=== PATIENT | female | born 1965 | race Caucasian/White ===

== ENCOUNTER 2021-03-20 11:59 | Outpatient (CLI) | payer BC, SELFPAY ==
--- NOTE | ~2021-03-20 | US_ITS ---
EXAMINATION: US venous doppler [facility] DATE: 03/20/2021 13:35 INDICATION: Left lower limb pain. TECHNIQUE: Grayscale ultrasound images without and with compression and Doppler ultrasound images of the left lower extremity veins were obtained. COMPARISON: None. FINDINGS: The visualized portions of left common femoral vein, profunda (deep) femoral vein, femoral vein, popl iteal vein, peroneal veins, posterior tibial veins, and greater saphenous vein outflow are patent. IMPRESSION: 1. No deep venous thrombosis. Reviewed, dictated and finalized at location A.
== END 2021-03-20 12:00 | disposition home or self-care (01) ==
LOC: ANHIMG 12:10
PROVIDERS: PCP Family Medicine; Visit Provider Family Medicine
DX: M79.605 Pain in left leg (principal)
CPT/HCPCS: 93971

== ENCOUNTER 2022-06-19 07:30 | Outpatient (RCR) | payer BC, SELFPAY | END 2022-09-03 10:36 | disposition home or self-care (01) | LOC: ANHDMC 07:30 | PROVIDERS: PCP Family Medicine; Visit Provider Family Medicine | DX: E78.00 Pure hypercholesterolemia, unspecified (principal) | CPT/HCPCS: 99199 ==

== ENCOUNTER → 2022-09-29 11:34 | Outpatient (CLI) | payer BC, SELFPAY ==
--- NOTE | ~2022-09-29 | MR_ITS ---
EXAMINATION: Bhavani Luquepp DATE: 09/29/2022 12:38 INDICATION: Right temporomandibular joint pain. Right temporomandibular joint disc displacement. TECHNIQUE: Magnetic resonance imaging (MRI) of the temporomandibular joints was performed without int ravenous contrast. Sequences included closed-mouth sagittal T2-weighted FSE and PD-weighted FSE and c oronal T1-weighted SE and open-mouth sagittal T2-weighted FSE and PD-weighted FSE and coronal T1-weig hted SE. COMPARISON: None. FINDINGS: The right temporomandibular joint demonstrates erosions of the mandibular condyle. There is anterior displacement of the disc with mouth closed. There is persistent anterior displacement of the disc wit h mouth open. The left temporomandibular joint demonstrates osteophytes of the condyle. There is anterior displacem ent of the disc with mouth closed. There is recapture of the disc with mouth open. IMPRESSION: 1. Severe right temporomandibular joint arthritis, which may be inflammatory arthritis or osteoarthri tis. Abnormal anterior displacement of the disc with mouth closed and open. 2. Mild left temporomandibular joint osteoarthritis. Abnormal anterior displacement of the disc with mouth closed, which reduces with mouth open. Reviewed, dictated and finalized at location A. IMPRESSION: 1. Severe right temporomandibular joint arthritis, which may be inflammatory ar thritis or osteoarthritis. Abnormal anterior displacement of the disc with mout h closed and open. 2. Mild left temporomandibular joint osteoarthritis. Abnormal anterior displace ment of the disc with mouth closed, which reduces with mouth open.
== END ==
PROVIDERS: PCP Family Medicine; Visit Provider Dentist General Practice
DX: M26.643 Arthritis of bilateral temporomandibular joint (principal); M19.09 Primary osteoarthritis, other specified site
CPT/HCPCS: 70336

== ENCOUNTER 2024-01-01 13:51 | Outpatient (CLI) | payer MEDICAID, SELFPAY ==
--- NOTE | ~2024-01-01 | XR_ITS ---
AP view of the pelvis and AP and lateral views of the right hip Clinical history: Pain Findings: No acute fracture or dislocation is seen. Osseous alignment is anatomic. Bilateral hip and SI joint spaces are preserved. Soft tissues are unremarkable. Impression: No significant abnormality is seen. Reviewed, dictated and finalized at [facility]. Impression: No significant abnormality is seen.
--- NOTE | ~2024-01-01 | XR_ITS ---
3 VIEWS LUMBAR SPINE Ordering provider: Xochitl Ellison, [employer]ER History: . PAIN RT LOWER BACK RADIATING ON RT HIP AND DOWN LEG . Comparison: May 17, 2017 FINDINGS: VERTEBRAL BODIES:Sclerotic area in the right sacral alar unchanged. Transitional vertebra in the last lumbar vertebra. No visible acute fracture or subluxation. DISK SPACES: Normal. Multilevel facet joint disease. SOFT TISSUES: Normal. IMPRESSION: No acute osseous abnormality lumbar spine. Reviewed, dictated and finalized at location A.
[2024-01-01 14:51] LABS: Basophils Percent Auto 0.4 % (0.2-1.2); Eosinophils Absolute Auto 0.2 K/mm3 (0-0.3); Eosinophils Percent Auto 3.3 % (0-4.4); Hemoglobin 12.9 g/dL (12.0-15.0); Immature Granulocyte Absolute 0.01 K/mm3 (0.00-0.031); Immature Granulocyte Percent A 0.2 % (0-0.5); Lymphocytes Absolute Auto 1.83 K/mm3 (0.9-3.2); Lymphocytes Percent Auto 37.6 % (18.3-44.2); Mean Corpuscular HGB Conc 33.1 g/dl (32-36); Mean Corpuscular Hemoglobin 31.4 pg (26-34); Mean Corpuscular Volume 94.9 fl (80-100); Mean Platelet Volume 11.5 fl (7.4-10.4); Monocytes Absolute Auto 0.4 K/mm3 (0.1-0.6); Monocytes Percent Auto 7.8 % (2.6-8.5); Neutrophils Absolute Auto 2.5 K/mm3 (1.3-6.7); Neutrophils Percent Auto 50.7 % (45.5-73.1); Platelet Count Result 242 k/mm3 (150-375); Red Blood Count 4.11 M/mm3 (4.2-5.4); Red Cell Distribution Width 12.3 % (11.5-14.5); White Blood Count 4.9 K/mm3 (4.5-10.0)
[2024-01-01 15:01] LABS: Alanine Aminotransferase 21 U/L (6-35); Albumin Level 4.2 g/dL (3.5-5.1); Alkaline Phosphatase 68 U/L (38-126); Anion Gap 8 mmol/L (4-12); Aspartate Amino Transferase 30 U/L (14-36); Bilirubin,Total 0.4 mg/dL (0.2-1.3); Blood Urea Nitrogen 11 mg/dL (7-17); Calcium 9.3 mg/dL (8.4-10.2); Carbon Dioxide 27 mmol/L (22-30); Chloride 106 mmol/L (98-107); Cholesterol 226 mg/dL (0-200); Estimated Glomerular Filt Rate > 60; Glucose 97 mg/dL (65-110); HDL Direct 61 mg/dL; Potassium 4.2 mmol/L (3.4-5.0); Sodium 141 mmol/L (137-145); Triglycerides 94 mg/dL (<150)
[2024-01-01 15:12] LABS: LDL Cholesterol Direct 134 mg/dL
[2024-01-01 15:55] LABS: Hepatitis C Virus Antibody Negative (Negative)
[2024-01-01 18:37] LABS: Hemoglobin A1C 5.6 % (<5.7)
== END 2024-01-01 13:52 | disposition home or self-care (01) ==
LOC: ANHIMG 13:52
PROVIDERS: PCP Family Medicine; Visit Provider Nurse Practitioner Family
DX: M79.604 Pain in right leg (principal); E78.00 Pure hypercholesterolemia, unspecified; F32.A Depression, unspecified; Z11.59 Encounter for screening for other viral diseases; Z13.1 Encounter for screening for diabetes mellitus
CPT/HCPCS: 36415; 72100; 73502; 73562; 80053; 80061; 83036; 84443; 85025; 86803

== ENCOUNTER 2024-01-09 10:58 | Outpatient (CLI) | payer MEDICAID, SELFPAY ==
--- NOTE | ~2024-01-09 | US_ITS ---
EXAMINATION:US venous doppler LE RT INDICATION:Right leg pain TECHNIQUE: Multiple grayscale, color flow and Doppler images of the right lower extremity deep venous systems were obtained and reviewed. COMPARISON:No prior studies for comparison. FINDINGS: The common femoral, superficial femoral and popliteal veins demonstrate normal respiratory variation, augmentation and compressibility. Color flow is also seen within the posterior tibial, pe roneal, greater saphenous and profunda veins. IMPRESSION: 1: No lower extremity deep venous thrombosis. Reviewed, dictated and finalized at location B.
== END 2024-01-09 10:59 | disposition home or self-care (01) ==
PROVIDERS: PCP Nurse Practitioner Family; Visit Provider Nurse Practitioner Family
DX: M79.604 Pain in right leg (principal)
CPT/HCPCS: 93971